=== PATIENT | male | born 1960 | race African-American/Black ===

== ENCOUNTER 2018-11-18 12:27 | Inpatient (IN) | payer OTHER ==
[2018-11-18 13:17] VITALS: BMI 23.0
--- NOTE | 2018-11-18 14:14 | HP ---
CIWA Score Nausea/Vomitin Muscle Tremors: 2 Anxiety: 2 Agitation: 2 Paroxysmal Sweats: 1-Minimal Palms Moist Orientation: 0-Oriented Tacttile Disturbances: 1-Very Mild Itch/Numbness Auditory Disturbances: 1-Very Mild Visual Disturbances: 0-None Headache: 2-Mild CIWA-Ar Total Score: 13 - Admission Criteria OASAS Guidelines: Admission for Medically Managed Detox: Requires at least one of the followin. CIWA greater than 12 2. Seizures within the past 24 hours 3. Delirium tremens within the past 24 hours 4. Hallucinations within the past 24 hours 5. Acute intervention needed for co occurring medical disorder 6. Acute intervention needed for co occurring psychiatric disorder 7. Severe withdrawal that cannot be handled at a lower level of care (continued vomiting, continued diarrhea, abnormal vital signs) requiring intravenous medication and/or fluids 8. Patient presents the following: CIWA greater than 12 Admission Criteria Met: Admission criteria met Admission ROS BHS - HPI Chief Complaint: i need help to stop drinking alcohol,heroin and cocaine abused Allergies/Adverse Reactions: Allergies Allergy/AdvReac Type Severity Reaction Status Date / Time No Known Allergies Allergy Verified 11/18/18 14:09 History of Present Illness: this 58 years old male with alcohol dependence with heroin and cocaine abused, seeking detox,withdrawal symptom, last detox 2017 in [place] nicotine dependence seizure last 11/14/18 longest period of sobriety 6 months Exam Limitations: No Limitations - Ebola screening Have you been sick,other than usual withdrawal symptoms: No - Review of Systems Constitutional: Night Sweats, Unintentional Wgt. Loss, Unexplained wgt Loss EENT: reports: Nose Congestion, Other (loss of 2 of upper teeth front) Respiratory: reports: No Symptoms reported Cardiac: reports: No Symptoms Reported GI: reports: Nausea, Poor Appetite, Abdominal cramping : reports: No Symptoms Reported Musculoskeletal: reports: Back Pain, Muscle Pain Integumentary: reports: Dryness Neuro: reports: Headache, Tremors Endocrine: reports: No Symptoms Reported Hematology: reports: No Symptoms Reported Psychiatric: reports: No Sypmtoms Reported, Judgement Intact, Mood/Affect Appropiate, Orientated x3 Other Systems: Reviewed and Negative Patient History - Patient Medical History Hx Anemia: No Hx Asthma: No Hx Chronic Obstructive Pulmonary Disease (COPD): No Hx Cancer: No Hx Cardiac Disorders: No Hx Congestive Heart Failure: No Hx Hypertension: No Hx Hypercholesterolemia: No Hx Pacemaker: No HX Cerebrovascular Accident: No Hx Seizures: No Hx Dementia: No Hx Diabetes: No Hx Gastrointestinal Disorders: No Hx Liver Disease: No Hx Genitourinary Disorders: No Hx Sexually Transmitted Disorders: No Hx Renal Disease (ESRD): No Hx Thyroid Disease: No Hx Human Immunodeficiency Virus (HIV): No (last 2013 ) Hx Hepatitis C: No Hx Depression: No Hx Suicide Attempt: No Hx Bipolar Disorder: No Hx Schizophrenia: No Other Medical History: no suiiidal,no homicidal - Patient Surgical History Past Surgical History: No - PPD History Previous Implant?: Yes Documented Results: Negative w/o proof Implanted On Prior [facility] Admission?: No PPD to be Administered?: Yes - Smoking Cessation Smoking history: Current every day smoker Have you smoked in the past 12 months: Yes Cigars Per Day: 0 Hx Chewing Tobacco Use: Yes Initiated information on smoking cessation: Yes 'Breaking Loose' booklet given: 11/18/18 - Substance & Tx. History Hx Alcohol Use: Yes Hx Substance Use: Yes Substance Use Type: Alcohol, Cocaine, Heroin Hx Substance Use Treatment: Yes (2017 in [place]) - Substances Abused Alcohol Route: Oral Frequency: Daily (1/) Amount used: 1/4 pint of rum,bacardi/6 packs of 16ozs of beer Age of first use: 17 Date of Last Use: 11/17/18 Cocaine Route: Smoking Frequency: 1-3 times last 30 days Amount used: 40$ Age of first use: 17 Date of Last Use: 11/04/18 Heroin Route: Inhalation Frequency: 1-3 times last 30 days Amount used: 1 bag Age of first use: 17 Date of Last Use: 11/01/18 Family Disease History - Family Disease History Family History: Denies Admission Physical Exam BHS - Vital Signs Vital Signs: Vital Signs - 24 hr 11/18/18 13:15 Temperature 97.7 F Pulse Rate 74 Respiratory 18 Rate Blood Pressure 135/98 - Physical General Appearance: Yes: Moderate Distress, Irritable, Sweating, Anxious HEENTM: Yes: Normal ENT Inspection, ARTUR, Pharynx Normal Respiratory: Yes: Chest Non-Tender, Lungs Clear, Normal Breath Sounds Neck: Yes: Within Normal Limits, Supple, Trachea in good position Breast: Yes: Within Normal Limits Cardiology: Yes: Within Normal Limits, Regular Rhythm, Regular Rate, S1, S2 Abdominal: Yes: Within Normal Limits, Normal Bowel Sounds, Soft Genitourinary: Yes: Dribblimg Back: Yes: Muscle Spasm Musculoskeletal: Yes: Back pain, Muscle Pain Extremities: Yes: Tremors Neurological: Yes: receiving checker II-XII NML intact, Fully Oriented, Alert, Motor Strength 5/5 Integumentary: Yes: Within Normal Limits - Diagnostic (1) Alcohol dependence with uncomplicated withdrawal Current Visit: Yes Status: Acute (2) Heroin use disorder, mild, abuse Current Visit: Yes Status: Acute (3) Cocaine dependence Current Visit: Yes Status: Acute (4) Nicotine dependence Current Visit: Yes Status: Acute (5) Seizure Current Visit: Yes Status: Acute Cleared for Admission [facility] - Detox or Rehab [facility] Level of Care: Medically Managed Detox Regimen/Protocol: Librium [facility] Breath Alcohol Content Breath Alcohol Content: 0 Urine Drug Screen - Results Drug Screen Negative: Yes Inpatient Rehab Admission - Rehab Decision to Admit Inpatient rehab admission?: No
[2018-11-18] MEDS ORDERED: LOPERAMIDE HCL 2 MG CAPSULE PO PRN (14:49)
[2018-11-18] MEDS ORDERED: IBUPROFEN 400 MG TABLET (FP) PO PRN (14:49)
[2018-11-18] MEDS ORDERED: MAGNESIUM CITRATE 300 ML BOTTLE PO PRN (14:49)
[2018-11-18] MEDS ORDERED: MAGNESIUM HYDROX 2400MG/30ML ORAL SUSPENSION 30 ML CUP PO PRN (14:49)
[2018-11-18] MEDS ORDERED: guaiFENesin/D-METHORPHAN HB 10 ML UNIT-DOSE CUPS PO PRN (14:49)
[2018-11-18] MEDS ORDERED: MENTHOL/PHENOL 1 EACH UD MM PRN (14:49)
[2018-11-18] MEDS ORDERED: ACETAMINOPHEN 325 MG TABLET (FP) PO PRN (14:49)
[2018-11-18] MEDS ORDERED: chlordiazePOXIDE HCL 25 MG CAPSULE PO PRN (14:49)
[2018-11-18] MEDS ORDERED: MAG HYDROX/AL HYDROX/SIMETH 30 ML UNIT-DOSE CUP PO PRN (14:49)
[2018-11-18] MEDS ORDERED: hydrOXYzine PAMOATE 25 MG CAPSULE (FP) PO PRN (14:49)
[2018-11-18] MEDS ORDERED: P-EPHED 60MG/TRIPROLIDI 2.5MG TABLET PO PRN (14:49)
[2018-11-18] MEDS: chlordiazePOXIDE HCL 25 MG CAPSULE PO SCH ×2 (16:22→22:27)
[2018-11-18] MEDS ORDERED: MELATONIN 5 MG TABLETS PO PRN (22:00)
[2018-11-18] MEDS: THIAMINE HCL 100 MG TABLET (FP) PO SCH (22:27)
[2018-11-18] MEDS: levETIRAcetam 500 MG TABLET (FP) PO SCH (22:27)
[2018-11-18] MEDS: PHENYTOIN NA EXTENDED 100 MG CAPSULE (FP) PO SCH (22:27)
[2018-11-18 23:32] LABS: URINE APPEARANCE CLEAR; URINE BILIRUBIN NEGATIVE (<2.0 mg/dL); URINE COLOR YELLOW; URINE GLUCOSE (UA) 1+ (NEGATIVE); URINE KETONE NEGATIVE (NEGATIVE); URINE LEUK ESTERASE NEGATIVE (NEGATIVE); URINE NITRITE NEGATIVE (NEGATIVE); URINE PROTEIN NEGATIVE (NEGATIVE); URINE UROBILINOGEN NEGATIVE mg/dL (0.2-1.0)
[2018-11-18 23:44] LABS: URINE HYALINE CAST 1 /lpf; URINE MUCUS RARE
[2018-11-19] MEDS: chlordiazePOXIDE HCL 25 MG CAPSULE PO SCH ×4 (05:24→22:15)
--- NOTE | 2018-11-19 08:08 | EKG ---
Test Reason : Blood Pressure : / mmHG Vent. Rate : 068 BPM Atrial Rate : 068 BPM P-R Int : 152 ms QRS Dur : 094 ms QT Int : 388 ms P-R-T Axes : 071 -81 057 degrees QTc Int : 412 ms NORMAL SINUS RHYTHM POSSIBLE LEFT ATRIAL ENLARGEMENT LEFT AXIS DEVIATION INCOMPLETE RIGHT BUNDLE BRANCH BLOCK ABNORMAL ECG NO PREVIOUS ECGS AVAILABLE Confirmed by MD WERO, IRISH ([id number]) on 11/19/2018 8:08:23 AM Referred By: Shar Wong Confirmed By:IRISH CONTEH MD
[2018-11-19] MEDS: PRENATAL VITAMINS W/ FOLIC ACID TABLET (FP) PO SCH (10:06)
[2018-11-19] MEDS: levETIRAcetam 500 MG TABLET (FP) PO SCH ×2 (10:06→22:15)
[2018-11-19] MEDS: PHENYTOIN NA EXTENDED 100 MG CAPSULE (FP) PO SCH ×2 (10:06→22:14)
--- NOTE | 2018-11-19 10:58 | PN ---
S CIWA - CIWA Score Nausea/Vomitin-No Nausea/No Vomiting Muscle Tremors: 3 Anxiety: 1-Mildly Anxious Agitation: 2 Paroxysmal Sweats: 1-Minimal Palms Moist Orientation: 1-Uncertain about Date Tacttile Disturbances: 0-None Auditory Disturbances: 0-None Visual Disturbances: 0-None Headache: 2-Mild CIWA-Ar Total Score: 10 S Progress Note (SOAP) Subjective: history of seizure treated with dilantin serum level pending tremor sweating restlessness Objective: 11/19/18 10:59 Vital Signs Temperature 97.3 F L 11/19/18 09:05 Pulse Rate 91 H 11/19/18 09:05 Respiratory Rate 18 11/19/18 09:05 Blood Pressure 97/62 11/19/18 09:05 O2 Sat by Pulse Oximetry (%) Laboratory Last Values Urine Color Yellow 11/18/18 22:20 Urine Appearance Clear 11/18/18 22:20 Urine pH 5.0 (5.0-8.0) 11/18/18 22:20 Ur Specific [place] 1.019 (1.010-1.035) 11/18/18 22:20 Urine Protein Negative (NEGATIVE) 11/18/18 22:20 Urine Glucose (UA) 1+ (NEGATIVE) H 11/18/18 22:20 Urine Ketones Negative (NEGATIVE) 11/18/18 22:20 Urine Blood 1+ (NEGATIVE) H 11/18/18 22:20 Urine Nitrite Negative (NEGATIVE) 11/18/18 22:20 Urine Bilirubin Negative (<2.0 mg/dL) 11/18/18 22:20 Urine Urobilinogen Negative mg/dL (0.2-1.0) 11/18/18 22:20 Ur Leukocyte Esterase Negative (NEGATIVE) 11/18/18 22:20 Urine WBC (Auto) 1 /hpf (3-5) 11/18/18 22:20 Urine RBC (Auto) 1 /hpf (0-3) 11/18/18 22:20 Hyaline Casts 1 /lpf 11/18/18 22:20 Urine Mucus Rare 11/18/18 22:20 lab noted Assessment: 11/19/18 11:00 withdrawal sx 11/19/18 11:00 seizure Plan: continue detox dilantin level
[2018-11-19 11:31] LABS: ALBUMIN 3.3 g/dl (3.4-5.0); ALK PHOS 68 U/L (45-117); ANION GAP 7 MMOL/L (8-16); BILIRUBIN,TOTAL 0.3 mg/dL (0.2-1); BLOOD UREA NITROGEN 14 mg/dL (7-18); CALCIUM 8.4 mg/dL (8.5-10.1); CHLORIDE 105 mmol/L (98-107); CO2 28 mmol/L (21-32); CREATININE 0.7 mg/dL (0.55-1.3); GLUCOSE,RANDOM 100 mg/dL (74-106); POTASSIUM 3.8 mmol/L (3.5-5.1); SGOT/AST 21 U/L (15-37); SGPT/ALT 28 U/L (13-61); SODIUM 140 mmol/L (136-145); TOT PROT 6.8 g/dl (6.4-8.2)
[2018-11-19 11:46] LABS: HEMATOCRIT 43.6 % (35.4-49); HEMOGLOBIN 14.9 GM/dL (11.7-16.9); MCH 32.6 pg (25.7-33.7); MCHC 34.2 g/dl (32.0-35.9); MEAN CELL VOLUME 95.5 fl (80-96); MEAN PLT VOLUME 7.9 fl (7.5-11.1); PLATELET COUNT 241 K/MM3 (134-434); RBC 4.57 M/mm3 (4.00-5.60); RDW 14.9 % (11.9-15.9); WHITE BLOOD COUNT 6.3 K/mm3 (4.0-10.0)
[2018-11-19 13:01] LABS: SICKLE CELL SCREEN NEGATIVE (NEGATIVE)
[2018-11-19] MEDS ORDERED: PHENYTOIN NA EXTENDED 100 MG CAPSULE (FP) PO ONE (16:00)
[2018-11-19] MEDS: THIAMINE HCL 100 MG TABLET (FP) PO SCH (22:14)
[2018-11-20] MEDS: chlordiazePOXIDE HCL 25 MG CAPSULE PO SCH ×2 (05:32→10:23)
[2018-11-20] MEDS: PHENYTOIN NA EXTENDED 100 MG CAPSULE (FP) PO SCH ×2 (10:23→22:25)
[2018-11-20] MEDS: PRENATAL VITAMINS W/ FOLIC ACID TABLET (FP) PO SCH (10:23)
[2018-11-20] MEDS: levETIRAcetam 500 MG TABLET (FP) PO SCH ×2 (10:23→22:25)
--- NOTE | 2018-11-20 14:48 | PN ---
S CIWA - CIWA Score Nausea/Vomitin-No Nausea/No Vomiting Muscle Tremors: 1-None Visible, but [place] Anxiety: 2 Agitation: 1-Slight > Activity Paroxysmal Sweats: 1-Minimal Palms Moist Orientation: 0-Oriented Tacttile Disturbances: 0-None Auditory Disturbances: 0-None Visual Disturbances: 0-None Headache: 1-Very Mild CIWA-Ar Total Score: 6 BHS Progress Note (SOAP) Subjective: tremor sweating sleep better at night tolerate food and fluid better Objective: 11/20/18 14:50 Vital Signs Temperature 98.4 F 11/20/18 13:47 Pulse Rate 66 11/20/18 13:47 Respiratory Rate 20 11/20/18 13:47 Blood Pressure 111/86 11/20/18 13:47 O2 Sat by Pulse Oximetry (%) Laboratory Last Values WBC 6.3 K/mm3 (4.0-10.0) 11/19/18 08:00 RBC 4.57 M/mm3 (4.00-5.60) 11/19/18 08:00 Hgb 14.9 GM/dL (11.7-16.9) 11/19/18 08:00 Hct 43.6 % (35.4-49) 11/19/18 08:00 MCV 95.5 fl (80-96) 11/19/18 08:00 MCH 32.6 pg (25.7-33.7) 11/19/18 08:00 MCHC 34.2 g/dl (32.0-35.9) 11/19/18 08:00 RDW 14.9 % (11.9-15.9) 11/19/18 08:00 Plt Count 241 K/MM3 (134-434) 11/19/18 08:00 MPV 7.9 fl (7.5-11.1) 11/19/18 08:00 Sickle Cell Screen Negative (NEGATIVE) 11/19/18 08:00 Sodium 140 mmol/L (136-145) 11/19/18 08:00 Potassium 3.8 mmol/L (3.5-5.1) 11/19/18 08:00 Chloride 105 mmol/L (98-107) 11/19/18 08:00 Carbon Dioxide 28 mmol/L (21-32) 11/19/18 08:00 Anion Gap 7 MMOL/L (8-16) L 11/19/18 08:00 BUN 14 mg/dL (7-18) 11/19/18 08:00 Creatinine 0.7 mg/dL (0.55-1.3) 11/19/18 08:00 Creat Clearance w eGFR > 60 (>60) 11/19/18 08:00 Random Glucose 100 mg/dL (74-106) 11/19/18 08:00 Calcium 8.4 mg/dL (8.5-10.1) L 11/19/18 08:00 Total Bilirubin 0.3 mg/dL (0.2-1) 11/19/18 08:00 AST 21 U/L (15-37) 11/19/18 08:00 ALT 28 U/L (13-61) 11/19/18 08:00 Alkaline Phosphatase 68 U/L (45-117) 11/19/18 08:00 Total Protein 6.8 g/dl (6.4-8.2) 11/19/18 08:00 Albumin 3.3 g/dl (3.4-5.0) L 11/19/18 08:00 Urine Color Yellow 11/18/18 22:20 Urine Appearance Clear 11/18/18 22:20 Urine pH 5.0 (5.0-8.0) 11/18/18 22:20 Ur Specific [place] 1.019 (1.010-1.035) 11/18/18 22:20 Urine Protein Negative (NEGATIVE) 11/18/18 22:20 Urine Glucose (UA) 1+ (NEGATIVE) H 11/18/18 22:20 Urine Ketones Negative (NEGATIVE) 11/18/18 22:20 Urine Blood 1+ (NEGATIVE) H 11/18/18 22:20 Urine Nitrite Negative (NEGATIVE) 11/18/18 22:20 Urine Bilirubin Negative (<2.0 mg/dL) 11/18/18 22:20 Urine Urobilinogen Negative mg/dL (0.2-1.0) 11/18/18 22:20 Ur Leukocyte Esterase Negative (NEGATIVE) 11/18/18 22:20 Urine WBC (Auto) 1 /hpf (3-5) 11/18/18 22:20 Urine RBC (Auto) 1 /hpf (0-3) 11/18/18 22:20 Hyaline Casts 1 /lpf 11/18/18 22:20 Urine Mucus Rare 11/18/18 22:20 Phenytoin 6.8 ug/ml (10.0-20.0) L 11/20/18 10:30 RPR Titer Nonreactive (NONREACTIVE) 11/19/18 08:00 lab noted dilantin 6.8 Assessment: 11/20/18 14:51 withdrawal sx seizure Plan: continue detox dillantin 6.8 600 mg dilantin po x 1 now repeat dilantin
[2018-11-20] MEDS ORDERED: PHENYTOIN NA EXTENDED 100 MG CAPSULE (FP) PO ONE (15:15)
[2018-11-20] MEDS: chlordiazePOXIDE 5 MG CAPSULE PO SCH ×2 (17:48→22:25)
[2018-11-20] MEDS: THIAMINE HCL 100 MG TABLET (FP) PO SCH (22:25)
[2018-11-21] MEDS: chlordiazePOXIDE 5 MG CAPSULE PO SCH ×2 (05:24→10:16)
[2018-11-21] MEDS: PHENYTOIN NA EXTENDED 100 MG CAPSULE (FP) PO SCH ×2 (10:16→22:29)
[2018-11-21] MEDS: PRENATAL VITAMINS W/ FOLIC ACID TABLET (FP) PO SCH (10:17)
[2018-11-21] MEDS: levETIRAcetam 500 MG TABLET (FP) PO SCH ×2 (10:17→22:29)
--- NOTE | 2018-11-21 11:13 | PN ---
S CIWA - CIWA Score Nausea/Vomitin-No Nausea/No Vomiting Muscle Tremors: 1-None Visible, but [place] Anxiety: 1-Mildly Anxious Agitation: 1-Slight > Activity Paroxysmal Sweats: 1-Minimal Palms Moist Orientation: 0-Oriented Tacttile Disturbances: 0-None Auditory Disturbances: 0-None Visual Disturbances: 0-None Headache: 0-None Present CIWA-Ar Total Score: 4 BHS Progress Note (SOAP) Subjective: feeling better less tremor mild sweating sleep better at night social with peers in day room Objective: 11/21/18 11:09 Vital Signs Temperature 96.6 F L 11/21/18 09:30 Pulse Rate 76 11/21/18 09:30 Respiratory Rate 18 11/21/18 09:30 Blood Pressure 131/76 11/21/18 09:30 O2 Sat by Pulse Oximetry (%) Laboratory Last Values WBC 6.3 K/mm3 (4.0-10.0) 11/19/18 08:00 RBC 4.57 M/mm3 (4.00-5.60) 11/19/18 08:00 Hgb 14.9 GM/dL (11.7-16.9) 11/19/18 08:00 Hct 43.6 % (35.4-49) 11/19/18 08:00 MCV 95.5 fl (80-96) 11/19/18 08:00 MCH 32.6 pg (25.7-33.7) 11/19/18 08:00 MCHC 34.2 g/dl (32.0-35.9) 11/19/18 08:00 RDW 14.9 % (11.9-15.9) 11/19/18 08:00 Plt Count 241 K/MM3 (134-434) 11/19/18 08:00 MPV 7.9 fl (7.5-11.1) 11/19/18 08:00 Sickle Cell Screen Negative (NEGATIVE) 11/19/18 08:00 Sodium 140 mmol/L (136-145) 11/19/18 08:00 Potassium 3.8 mmol/L (3.5-5.1) 11/19/18 08:00 Chloride 105 mmol/L (98-107) 11/19/18 08:00 Carbon Dioxide 28 mmol/L (21-32) 11/19/18 08:00 Anion Gap 7 MMOL/L (8-16) L 11/19/18 08:00 BUN 14 mg/dL (7-18) 11/19/18 08:00 Creatinine 0.7 mg/dL (0.55-1.3) 11/19/18 08:00 Creat Clearance w eGFR > 60 (>60) 11/19/18 08:00 Random Glucose 100 mg/dL (74-106) 11/19/18 08:00 Calcium 8.4 mg/dL (8.5-10.1) L 11/19/18 08:00 Total Bilirubin 0.3 mg/dL (0.2-1) 11/19/18 08:00 AST 21 U/L (15-37) 11/19/18 08:00 ALT 28 U/L (13-61) 11/19/18 08:00 Alkaline Phosphatase 68 U/L (45-117) 11/19/18 08:00 Total Protein 6.8 g/dl (6.4-8.2) 11/19/18 08:00 Albumin 3.3 g/dl (3.4-5.0) L 11/19/18 08:00 Urine Color Yellow 11/18/18 22:20 Urine Appearance Clear 11/18/18 22:20 Urine pH 5.0 (5.0-8.0) 11/18/18 22:20 Ur Specific [place] 1.019 (1.010-1.035) 11/18/18 22:20 Urine Protein Negative (NEGATIVE) 11/18/18 22:20 Urine Glucose (UA) 1+ (NEGATIVE) H 11/18/18 22:20 Urine Ketones Negative (NEGATIVE) 11/18/18 22:20 Urine Blood 1+ (NEGATIVE) H 11/18/18 22:20 Urine Nitrite Negative (NEGATIVE) 11/18/18 22:20 Urine Bilirubin Negative (<2.0 mg/dL) 11/18/18 22: Urine Urobilinogen Negative mg/dL (0.2-1.0) 11/18/18 22:20 Ur Leukocyte Esterase Negative (NEGATIVE) 11/18/18 22:20 Urine WBC (Auto) 1 /hpf (3-5) 11/18/18 22:20 Urine RBC (Auto) 1 /hpf (0-3) 11/18/18 22:20 Hyaline Casts 1 /lpf 11/18/18 22:20 Urine Mucus Rare 11/18/18 22:20 Phenytoin 6.8 ug/ml (10.0-20.0) L 11/20/18 10:30 RPR Titer Nonreactive (NONREACTIVE) 11/19/18 08:00 HIV 1&2 Antibody Screen Negative 11/19/18 10:30 HIV P24 Antigen Negative 11/19/18 10:30 lab noted strong recommend the patient adherence with dilantin dilantin level pending Assessment: 11/21/18 11:12 mild withdrawal sx Plan: continue detox
[2018-11-21] MEDS: chlordiazePOXIDE HCL 10 MG CAPSULE PO SCH ×2 (17:46→22:29)
[2018-11-21] MEDS: THIAMINE HCL 100 MG TABLET (FP) PO SCH (22:29)
[2018-11-22] MEDS: chlordiazePOXIDE HCL 10 MG CAPSULE PO SCH (05:43)
[2018-11-22 06:14] VITALS: BP 105/63; PULSE 79; TEMP 97.9
--- NOTE | 2018-11-22 21:27 | PN ---
BHS Progress Note (SOAP) Subjective: Patient Reports That Current Withdrawal / Detox Symptoms are Minimal in Severity and That He Feels well Overall. Objective: PATIENT A & O X 3, OBSERVED AMBULATING ON UNIT. IN NO ACUTE DISTRESS. 11/22/18 21:26 Vital Signs Temperature 97.9 F 11/22/18 06:13 Pulse Rate 79 11/22/18 06:13 Respiratory Rate 18 11/22/18 06:13 Blood Pressure 105/63 11/22/18 06:13 O2 Sat by Pulse Oximetry (%) Laboratory Tests 11/18/18 11/19/18 11/19/18 22:20 08:00 08:00 WBC 6.3 RBC 4.57 Hgb 14.9 Hct 43.6 MCV 95.5 MCH 32.6 MCHC 34.2 RDW 14.9 Plt Count 241 MPV 7.9 Sickle Cell Screen Negative Sodium 140 Potassium 3.8 Chloride 105 Carbon Dioxide 28 Anion Gap 7 L BUN 14 Creatinine 0.7 Creat Clearance w eGFR > 60 Random Glucose 100 Calcium 8.4 L Total Bilirubin 0.3 AST 21 ALT 28 Alkaline Phosphatase 68 Total Protein 6.8 Albumin 3.3 L Urine Color Yellow Urine Appearance Clear Urine pH 5.0 Ur Specific [place] 1.019 Urine Protein Negative Urine Glucose (UA) 1+ H Urine Ketones Negative Urine Blood 1+ H Urine Nitrite Negative Urine Bilirubin Negative Urine Urobilinogen Negative Ur Leukocyte Esterase Negative Urine WBC (Auto) 1 Urine RBC (Auto) 1 Hyaline Casts 1 Urine Mucus Rare Phenytoin Levetiracetam RPR Titer HIV 1&2 Antibody Screen HIV P24 Antigen 11/19/18 11/19/18 11/19/18 08:00 08:00 08:00 WBC RBC Hgb Hct MCV MCH MCHC RDW Plt Count MPV Sickle Cell Screen Sodium Potassium Chloride Carbon Dioxide Anion Gap BUN Creatinine Creat Clearance w eGFR Random Glucose Calcium Total Bilirubin AST ALT Alkaline Phosphatase Total Protein Albumin Urine Color Urine Appearance Urine pH Ur Specific [place] Urine Protein Urine Glucose (UA) Urine Ketones Urine Blood Urine Nitrite Urine Bilirubin Urine Urobilinogen Ur Leukocyte Esterase Urine WBC (Auto) Urine RBC (Auto) Hyaline Casts Urine Mucus Phenytoin 3.9 L Levetiracetam 6.7 L RPR Titer Nonreactive HIV 1&2 Antibody Screen HIV P24 Antigen 02/19/19 02/20/19 02/21/19 10:30 10:30 08:38 WBC RBC Hgb Hct MCV MCH MCHC RDW Plt Count MPV Sickle Cell Screen Sodium Potassium Chloride Carbon Dioxide Anion Gap BUN Creatinine Creat Clearance w eGFR Random Glucose Calcium Total Bilirubin AST ALT Alkaline Phosphatase Total Protein Albumin Urine Color Urine Appearance Urine pH Ur Specific [place] Urine Protein Urine Glucose (UA) Urine Ketones Urine Blood Urine Nitrite Urine Bilirubin Urine Urobilinogen Ur Leukocyte Esterase Urine WBC (Auto) Urine RBC (Auto) Hyaline Casts Urine Mucus Phenytoin 6.8 L 11.7 Levetiracetam RPR Titer HIV 1&2 Antibody Screen Negative HIV P24 Antigen Negative LABS NOTED. Assessment: 11/22/18 21:27 COMPLETION OF DETOX REGIMEN. Plan: PATIENT SCHEDULED FOR DISCHARGE FROM DETOX UNIT TODAY.
--- NOTE | 2018-11-22 21:33 | DS ---
[facility] Detox Discharge Summary Admission Date: 11/18/18 Discharge Date: 11/22/18 - History Present History: Alcohol Dependence, Cocaine Dependence, Opioid Dependence Additional Comments: PATIENT REFERRED TO [facility]MICAL DEPENDENCY[facility] PROGRAM ([facility] [place]) FOR AFTERCARE. PATIENT ALSO REPORTS THAT HE IS CONSIDERING [facility] OUTPATIENT PROGRAM FOR AFTERCARE. PATIENT ADVISED TO FOLLOW-UP WITH [facility] SPECIALIST ([facility] [place], PATIENT UNABLE TO RECALL NAME OF MEDICAL PROVIDER AT THIS TIME) WHEN POSSIBLE AFTER DISCHARGE FROM DETOX UNIT FOR GENERAL MEDICAL EVALUATION AND FOR HISTORY OF SEIZURES. PATIENT VERBALIZED UNDERSTANDING OF RECOMMENDATION. DISCHARGE PRESCRIPTIONS FOR ANTI-SEIZURE MEDICATIONS (KEPPRA, DILANTIN ER) SENT TO [facility], [place], [place] ( AT PATIENT'S REQUEST) SO THAT PATIENT MAY PICK THEM UP ON HIS WAY OUT OF BUILDING. PATIENT WAS DISCHARGED FROM DETOX UNIT IN STABLE MEDICAL CONDITION. Pertinent Past History: Nicotine Dependence, History Of Seizures. - Physical Exam Results Vital Signs: Vital Signs Temperature 97.9 F 11/22/18 06:13 Pulse Rate 79 11/22/18 06:13 Respiratory Rate 18 11/22/18 06:13 Blood Pressure 105/63 11/22/18 06:13 O2 Sat by Pulse Oximetry (%) Pertinent Admission Physical Exam Findings: WITHDRAWAL SYMPTOMS. Laboratory Tests 11/18/18 11/19/18 11/19/18 22:20 08:00 08:00 WBC 6.3 RBC 4.57 Hgb 14.9 Hct 43.6 MCV 95.5 MCH 32.6 MCHC 34.2 RDW 14.9 Plt Count 241 MPV 7.9 Sickle Cell Screen Negative Sodium 140 Potassium 3.8 Chloride 105 Carbon Dioxide 28 Anion Gap 7 L BUN 14 Creatinine 0.7 Creat Clearance w eGFR > 60 Random Glucose 100 Calcium 8.4 L Total Bilirubin 0.3 AST 21 ALT 28 Alkaline Phosphatase 68 Total Protein 6.8 Albumin 3.3 L Urine Color Yellow Urine Appearance Clear Urine pH 5.0 Ur Specific [place] 1.019 Urine Protein Negative Urine Glucose (UA) 1+ H Urine Ketones Negative Urine Blood 1+ H Urine Nitrite Negative Urine Bilirubin Negative Urine Urobilinogen Negative Ur Leukocyte Esterase Negative Urine WBC (Auto) 1 Urine RBC (Auto) 1 Hyaline Casts 1 Urine Mucus Rare Phenytoin Levetiracetam RPR Titer HIV 1&2 Antibody Screen HIV P24 Antigen 11/19/18 11/19/18 11/19/18 08:00 08:00 08:00 WBC RBC Hgb Hct MCV MCH MCHC RDW Plt Count MPV Sickle Cell Screen Sodium Potassium Chloride Carbon Dioxide Anion Gap BUN Creatinine Creat Clearance w eGFR Random Glucose Calcium Total Bilirubin AST ALT Alkaline Phosphatase Total Protein Albumin Urine Color Urine Appearance Urine pH Ur Specific [place] Urine Protein Urine Glucose (UA) Urine Ketones Urine Blood Urine Nitrite Urine Bilirubin Urine Urobilinogen Ur Leukocyte Esterase Urine WBC (Auto) Urine RBC (Auto) Hyaline Casts Urine Mucus Phenytoin 3.9 L Levetiracetam 6.7 L RPR Titer Nonreactive HIV 1&2 Antibody Screen HIV P24 Antigen 11/19/18 11/20/18 11/21/18 10:30 10:30 08:38 WBC RBC Hgb Hct MCV MCH MCHC RDW Plt Count MPV Sickle Cell Screen Sodium Potassium Chloride Carbon Dioxide Anion Gap BUN Creatinine Creat Clearance w eGFR Random Glucose Calcium Total Bilirubin AST ALT Alkaline Phosphatase Total Protein Albumin Urine Color Urine Appearance Urine pH Ur Specific [place] Urine Protein Urine Glucose (UA) Urine Ketones Urine Blood Urine Nitrite Urine Bilirubin Urine Urobilinogen Ur Leukocyte Esterase Urine WBC (Auto) Urine RBC (Auto) Hyaline Casts Urine Mucus Phenytoin 6.8 L 11.7 Levetiracetam RPR Titer HIV 1&2 Antibody Screen Negative HIV P24 Antigen Negative LABS NOTED. - Treatment Hospital Course: Detox Protocol Followed, Detoxed Safely, Responded well, Discharged Condition Good Patient has Accepted a Rehab Referral to: [facility]ENDENC[facility] ([place], [place]) - Medication Discharge Medications: Ambulatory Orders Phenytoin Na Extended [Dilantin -] 100 mg PO BID 30 Days #60 capsule 11/22/18 levETIRAcetam [Keppra -] 500 mg PO BID 30 Days #60 tablet 11/22/18 - Diagnosis (1) Heroin use disorder, mild, abuse Status: Acute (2) Nicotine dependence Status: Acute Qualifiers: Nicotine product type: cigarettes Substance use status: uncomplicated Qualified Code(s): F17.210 - Nicotine dependence, cigarettes, uncomplicated (3) Seizure Status: Acute (4) Alcohol dependence with uncomplicated withdrawal Status: Acute (5) Cocaine dependence Status: Acute Qualifiers: Substance use status: uncomplicated Qualified Code(s): F14.20 - Cocaine dependence, uncomplicated - AMA Did Patient Leave Against Medical Advice: No
== END 2018-11-22 09:50 | disposition home or self-care (01) | DRG 897 ==
LOC: YASAS 12:27 → Y3N 15:20
PROVIDERS: ADMIT Surgery; ATTEND Surgery
PROC: HZ2ZZZZ Detoxification Services for Substance Abuse Treatment (ICD-10-PCS; principal; 2018-11-18)
DX: F10.230 Alcohol dependence with withdrawal, uncomplicated (principal); F11.10 Opioid abuse, uncomplicated; F14.10 Cocaine abuse, uncomplicated; F17.210 Nicotine dependence, cigarettes, uncomplicated; G40.909 Epilepsy, unspecified, not intractable, without status epilepticus
CPT/HCPCS: 36415; 80053; 80177; 80185; 81003; 81015; 85027; 85660; 86593; 87389; 93005; 93010